=== PATIENT | male | born 1990 | race Two or more races ===

== ENCOUNTER 2018-09-25 09:10 | Emergency (ER) | payer MEDICAID ==
[~2018-09-25] VITALS: Ht 165.1 cm; Wt 61.7 kg
[2018-09-25 09:33] VITALS: BP 119/73
[2018-09-25] MEDS ORDERED: TETANUS-DIPTH-ACEL PERTUSSIS 0.5ML SYRG IM ONE (10:00)
[2018-09-25] MEDS ORDERED: LIDOCAINE 1% HCL (LOCAL ANESTH.) INJ 20ML MDV IJ ONE (10:15)
[2018-09-25] MEDS ORDERED: BACITRACIN TOP OINT 1 UD PKG TOP ONE (11:00)
== END 2018-09-25 14:40 | disposition home or self-care (01) ==
LOC: ER 09:10
DX: S61.216A Laceration without foreign body of right little finger without damage to nail, initial encounter (principal); W22.8XXA Striking against or struck by other objects, initial encounter; Y93.89 Activity, other specified; Y92.89 Other specified places as the place of occurrence of the external cause; Y99.8 Other external cause status
CPT/HCPCS: 12041; 73130; 90471; 90715; 99284; J2001